=== PATIENT | female | born 2000 | race Two or more races ===

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

== ENCOUNTER → 2019-10-23 | Outpatient (CLI) | payer MEDICARE, OTHER, MEDICAID ==
[2019-10-24 10:18] LABS: IMMUNOGLOBULIN A 512 mg/dL (87-352)
[2019-10-24 15:50] LABS: T-TRANSGLUTAMINASE (TTG) IGA 2 U/mL (0-3)
== END ==
LOC: LAB 09:16
PROVIDERS: ATTEND Pediatrics
DX: E10.649 Type 1 diabetes mellitus with hypoglycemia without coma (principal)
CPT/HCPCS: 36415; 82024; 82533; 82784; 83516; 85652; 86140; 86256